=== PATIENT | female | born 1995 | race Caucasian/White ===

== ENCOUNTER 2023-02-14 07:01 | Emergency (ER) | payer OTHER ==
[~2023-02-14] VITALS: Ht 149.9 cm; Wt 83.0 kg
[2023-02-14] MEDS ORDERED: REGLAN5 MG/5 ML PO (07:26)
[2023-02-14] MEDS ORDERED: TUSSIN100 MG/51 PO (10:56)
[2023-02-14] MEDS ORDERED: DUI500 PO (10:56)
[2023-02-14] MEDS ORDERED: ZYRTEC10 MG PO (10:56)
== END 2023-02-14 10:57 | disposition home or self-care (01) ==
LOC: ER 07:01
DX: O98.512 Other viral diseases complicating pregnancy, second trimester (principal); Z3A.14 14 weeks gestation of pregnancy; J03.90 Acute tonsillitis, unspecified; Z20.822 Contact with and (suspected) exposure to COVID-19

== ENCOUNTER 2023-03-30 14:00 | Outpatient (CLI) | payer OTHER ==
[~2023-03-30 14:00] MED LIST: DUI500 PO; REGLAN5 MG/5 ML PO; TUSSIN100 MG/51 PO; ZYRTEC10 MG PO
== END 2023-03-30 17:39 | disposition home or self-care (01) ==
LOC: PRENATAL 14:00
PROVIDERS: ATTEND Obstetrics & Gynecology Maternal & Fetal Medicine
DX: O35.3XX0 Maternal care for (suspected) damage to fetus from viral disease in mother, not applicable or unspecified (principal); O44.00 Complete placenta previa NOS or without hemorrhage, unspecified trimester; O99.210 Obesity complicating pregnancy, unspecified trimester; Z3A.20 20 weeks gestation of pregnancy

== ENCOUNTER 2023-05-11 09:08 | Outpatient (CLI) | payer OTHER | END 2023-05-11 11:24 | disposition home or self-care (01) | LOC: PRENATAL 09:08 | PROVIDERS: ATTEND Obstetrics & Gynecology Maternal & Fetal Medicine | DX: O26.849 Uterine size-date discrepancy, unspecified trimester (principal); O99.210 Obesity complicating pregnancy, unspecified trimester; Z3A.26 26 weeks gestation of pregnancy ==